=== PATIENT | female | born 1960 | race American Indian/Alaskan Native ===

== ENCOUNTER 2018-08-18 13:56 | Inpatient (IN) | payer MEDICARE, MEDICAID, SELFPAY ==
[2018-08-18] VITALS (13 sets, daily range): BP systolic 75–147; BP diastolic 33–88; PULSE 40–83; RESP 12–21; TEMP 36.9–39.6; O2SAT 84–100; BMI 27.3
--- NOTE | 2018-08-18 10:51 | DI.RAD.S_ITS ---
PROCEDURE: XR CHEST 1V INDICATIONS: fever cough TECHNIQUE: One view of the chest was acquired. COMPARISON: None. FINDINGS: Surgical changes and devices: None. Lungs and pleura: There are patchy airspace opacities in the left lung base suggestive of consolidation and pneumonia given clinical history. Indistinct right infrahilar opacities may also represent developing consolidation versus atelectasis. No pleural effusions or pneumothorax. Mediastinum: Mediastinal contours appear normal. Heart size is normal. Bones and chest wall: No suspicious bony lesions. Overlying soft tissues appear unremarkable. IMPRESSION: 1. Left basilar opacities suggestive of consolidation and pneumonia given clinical history. 2. Right basilar opacities may also represent developing consolidation versus atelectasis. Dictated by: Pramod Walters M.D. on 08/18/2018 at 11:11 Approved by: Pramod Walters M.D. on 08/18/2018 at 11:13
[2018-08-18] MEDS: KETOROLAC 60 MG/2 ML VIAL 30 MG IV (13:40)
[2018-08-18] MEDS: SODIUM CHLORIDE 0.9% 1,000 ML 1000 ML IV (14:00)
--- NOTE | 2018-08-18 14:19 | ED.AMS ---
HPI - Altered Mental Status General Chief Complaint: Toxicology Problem Stated Complaint: overdose Time Seen by Provider: 08/18/18 14:20 History of Present Illness HPI narrative: PATIENT ACTUALLY ARRIVED AT 10:50 A.M. WHICH IS THE TIME I SAW HER. UNFORTUNATELY DUE TO A Incoming Media ERROR ALL CHARTING HAS LOST IN UNABLE TO TRANSFER. Patient is a 58-year-old female presenting from [facility] the methadone clinic, she received her normal dose of methadone and about an hour or 2 later became unresponsive. She does admit to taking 1 other Percocet. She was given 4 mg of intranasal Narcan which she quickly became more responsive and vomited. She is actually febrile here in the ED. She is difficult to get any history from at this time. She is responsive. He has known history of COPD. She apparently has not been feeling well for last couple of days. We have received records from her PCP she was on prednisone and doxycycline July 12 2018. Related Data Home Medications Medication Instructions Recorded Confirmed albuterol sulfate [ProAir HFA] 2 puff INHALATION Q4-6H PRN 08/18/18 08/18/18 fluticasone 1 spray INTRANASAL DAILY 08/18/18 08/18/18 gabapentin 800 mg PO QID 08/18/18 08/18/18 hydroxyzine HCl 10 mg PO BEDTIME PRN 08/18/18 08/18/18 methadone 60 mg PO DAILY 08/18/18 08/18/18 Allergies Allergy/AdvReac Type Severity Reaction Status Date / Time acetaminophen Allergy Unknown Verified 08/18/18 15:15 codeine Allergy Unknown Verified 08/18/18 15:15 lactose Allergy Unknown Verified 08/18/18 15:15 propoxyphene Allergy Unknown Verified 08/18/18 15:15 [From [facility]] Review of Systems Review of Systems ROS Unobtainable: Unobtainable due to mental condition Constitutional Reports body ache(s), Reports fatigue and Reports fever(s) Cardiovascular Denies chest pain Respiratory Reports change in phlegm color, Reports chest congestion and Reports cough Gastrointestinal Gastrointestinal: Reports vomiting Musculoskeletal Denies back pain, Denies muscle weakness, Denies numbness and Denies tingling Integumentary/Breasts Denies pruritus, Denies erythema, Denies rash and Denies wounds Neurologic Reports confusion, Denies numbness and Denies tingling Psychiatric Reports confusion Endocrine Reports fatigue Exam Initial Vital Signs Initial Vital Signs: Vital Signs Temperature 103.2 F H 08/18/18 13:40 Pulse Rate 81 08/18/18 13:40 Respiratory Rate 16 08/18/18 13:40 Blood Pressure 122/88 08/18/18 13:40 Pulse Oximetry 100 08/18/18 13:40 Const General: cooperative and No diaphoretic Nutritional Appearance: average body habitus Orientation: alert and awake [facility] Head: normal to inspection, normocephalic and atraumatic Eyes General: appearance normal, both eyes and all related structures Neck Neck: normal visual inspection, full ROM and no meningeal signs Chest Chest: normal inspection of the chest Resp Effort & Inspection: normal respiratory effort and able to speak in complete sentences Auscultation: rales bilaterally at the base, no wheezes and no rubs Tactile Fremitus: tactile fremitus absent Cardio Rate: regular rate Rhythm: regular rhythm Heart Sounds: no click, no gallops, no murmurs and no rubs Pulses: normal peripheral pulses GI Inspection: non-distended Palpation: soft, no hepatosplenomegaly, No guarding, No pulsatile mass and No tender Auscultation: normal bowel sounds Skin General: no rashes or lesions noted, No jaundice and No petechiae Neuro General: alert, awake and no focal motor deficits Cognition: abnormal cognition (Confused) Course Orders Ordered: ED Orders 08/18/18 10:51 Urine Drug Screen, Rapid Stat 08/18/18 11:20 Acetaminophen Stat Blood Culture Stat Complete Blood Count AUTO DIFF Stat Comprehensive Metabolic Panel Stat Ethanol (ETOH) Stat Influenza A and B by PCR Rapid Stat Lactate (Lactic Acid) Stat Lipase Stat Procalcitonin Stat Salicylate Stat 08/18/18 14:03 Chest [XR chest 1V] Stat 08/18/18 15:20 Education, smoking cessation ONGOING Al Hydrox/Mg Hydrox/Simethicone (Maalox Plus) 30 ml PO Q6HR PRN PRN Reason: Dyspepsia Bisacodyl (Dulcolax) 10 mg NC DAILY PRN PRN Reason: Constipation Calcium Carbonate (Tums) 1,000 mg PO Q4HR PRN PRN Reason: Dyspepsia Heparin Sodium (Porcine) (Heparin) 5,000 unit SUBCUT Q8HR RADHA Last Admin: 08/18/18 16:40 Dose: 5,000 unit Sodium Chloride (Normal Saline 0.9%) 2,095.59 mls @ 698.53 mls/hr 30 ml/kg infuse over 3 hr (2095.59 ml) IV CONT RADHA Last Infusion: 08/18/18 15:24 Dose: 0 mls/hr Admin: 08/18/18 15:22 Dose: 698.53 mls/hr Sodium Chloride (Normal Saline 0.9%) 1,000 mls @ 100 mls/hr IV CONT RADHA Last Admin: 08/18/18 16:38 Dose: 100 mls/hr Magnesium Hydroxide (Milk Of Magnesia) 30 ml PO DAILY PRN PRN Reason: Constipation Sennosides (Senna) 17.2 mg PO BEDTIME PRN PRN Reason: Constipation Discontinued Medications Cefepime HCl 1 gm/ Sodium (Chloride) 100 mls @ 200 mls/hr IV NOW ONE Stop: 08/18/18 12:35 Last Infusion: 08/18/18 15:24 Dose: 0 mls/hr Admin: 08/18/18 15:22 Dose: 200 mls/hr Sodium Chloride (Normal Saline 0.9%) 1,000 mls @ 200 mls/hr IV CONT RADHA Last Infusion: 08/18/18 16:10 Dose: 800 mls/hr Admin: 08/18/18 15:25 Dose: 200 mls/hr Vancomycin HCl/Dextrose (Vancomycin) 1,000 mg in 200 mls @ 200 mls/hr IV NOW ONE Stop: 08/18/18 13:38 Last Infusion: 08/18/18 15:24 Dose: 0 mls/hr Admin: 08/18/18 15:21 Dose: 200 mls/hr Cefepime HCl 1 gm/ Sodium (Chloride) 100 mls @ 200 mls/hr IV NOW ONE Stop: 08/18/18 14:59 Last Infusion: 08/18/18 15:23 Dose: 0 mls/hr Admin: 08/18/18 15:21 Dose: 200 mls/hr Sodium Chloride (Normal Saline 0.9%) 1,000 mls @ 1,000 mls/hr IV BOLUS ONE Stop: 08/18/18 11:50 Last Infusion: 08/18/18 15:23 Dose: 0 mls/hr Admin: 08/18/18 14:00 Dose: 1,000 mls/hr Ketorolac Tromethamine (Toradol) 30 mg IV NOW ONE Stop: 08/18/18 10:52 Last Admin: 08/18/18 13:40 Dose: 30 mg Methylprednisolone (Solu-Medrol 125 Mg Vial) 125 mg IV NOW ONE Stop: 08/18/18 12:33 Last Admin: 08/18/18 15:20 Dose: 125 mg Ondansetron HCl (Zofran) 4 mg IV NOW ONE Stop: 08/18/18 10:52 Last Admin: 08/18/18 15:19 Dose: 4 mg Vital Signs - 8 hr 08/18/18 13:40 08/18/18 13:45 08/18/18 14:00 Temperature 103.2 F H 98.9 F Pulse Rate 82 63 83 Respiratory Rate 21 21 16 Blood Pressure 147/76 H Blood Pressure [Left Arm] 122/88 75/33 L Pulse Oximetry 96 94 08/18/18 14:30 08/18/18 15:00 08/18/18 15:25 Temperature 98.9 F Pulse Rate 61 52 L Respiratory Rate 12 13 Blood Pressure Blood Pressure [Left Arm] 84/39 L 82/39 L Pulse Oximetry 94 94 08/18/18 15:46 Temperature 98.4 F Pulse Rate 53 L Respiratory Rate 15 Blood Pressure 85/45 L Blood Pressure [Left Arm] Pulse Oximetry MDM - Altered Mental Status Lab Data Attestation: I reviewed the patient's lab results. Result diagrams: 08/18/18 11:20 08/18/18 11:20 Lab Results 08/18/18 08/18/18 08/18/18 Range/Units 11:20 11:20 11:20 WBC 15.7 H (4.5-11.0) X10^3/uL RBC 5.22 H (4.0-5.2) X10^6/uL Hgb 13.6 (12.0-16.0) g/dL Hct 42.4 (36-46) % MCV 81.2 (80-100) fL MCH 26.1 (26-34) PG MCHC 32.1 (30-36) % RDW 15.5 H (11.6-14.8) % Plt Count 324 (150-400) X10^3/uL Neut % (Auto) 93.9 H (50-75) % Lymph % (Auto) 3.3 L (25-40) % Isabela % (Auto) 3.1 (3-14) % Eos % (Auto) 0.0 L (2-4) % Baso % (Auto) 0.3 (0-2) % Neut # (Auto) 04789 H (5682-8436) /uL Lymph # (Auto) 500 L (7872-9313) /uL Isabela # (Auto) 500 (0-900) /uL Eos # (Auto) 0 (0-450) /uL Baso # (Auto) 0 (0-100) /uL Sodium (137-145) mmol/L Potassium (3.4-5.1) mmol/L Chloride (98-107) mmol/L Carbon Dioxide (22-32) mmol/L BUN (7-17) mg/dL Creatinine (0.52-1.04) mg/dL Estimated GFR (>60) mL/min BUN/Creatinine Ratio (6-22) Glucose (80-110) mg/dL Lactate (0.7-2.1) mmol/L Calcium (8.4-10.2) mg/dL Total Bilirubin (0.2-1.3) mg/dL AST (14-36) IU/L ALT (9-52) IU/L Alkaline Phosphatase (38-126) U/L Total Protein (6.3-8.2) g/dL Albumin (3.5-5.0) g/dL Globulin (1.7-4.1) g/dL Albumin/Globulin Ratio (1.0-2.8) Lipase Cancelled Procalcitonin (<0.5) ng/mL Salicylates Cancelled Acetaminophen (10-30) ug/mL Ethyl Alcohol mg/dL Influenza A & B (PCR) Negative (Negative) 08/18/18 08/18/18 08/18/18 Range/Units 11:20 11:20 11:20 WBC (4.5-11.0) X10^3/uL RBC (4.0-5.2) X10^6/uL Hgb (12.0-16.0) g/dL Hct (36-46) % MCV (80-100) fL MCH (26-34) PG MCHC (30-36) % RDW (11.6-14.8) % Plt Count (150-400) X10^3/uL Neut % (Auto) (50-75) % Lymph % (Auto) (25-40) % Isabela % (Auto) (3-14) % Eos % (Auto) (2-4) % Baso % (Auto) (0-2) % Neut # (Auto) (9603-1308) /uL Lymph # (Auto) (3373-5315) /uL Isabela # (Auto) (0-900) /uL Eos # (Auto) (0-450) /uL Baso # (Auto) (0-100) /uL Sodium 138 (137-145) mmol/L Potassium 3.8 (3.4-5.1) mmol/L Chloride 104 (98-107) mmol/L Carbon Dioxide 24 (22-32) mmol/L BUN 8 (7-17) mg/dL Creatinine 0.70 (0.52-1.04) mg/dL Estimated GFR > 60.0 (>60) mL/min BUN/Creatinine Ratio 11.4 (6-22) Glucose 93 (80-110) mg/dL Lactate 1.5 (0.7-2.1) mmol/L Calcium 8.5 (8.4-10.2) mg/dL Total Bilirubin 0.6 (0.2-1.3) mg/dL AST 35 (14-36) IU/L ALT 23 (9-52) IU/L Alkaline Phosphatase 112 (38-126) U/L Total Protein 7.4 (6.3-8.2) g/dL Albumin 4.2 (3.5-5.0) g/dL Globulin 3.2 (1.7-4.1) g/dL Albumin/Globulin Ratio 1.3 (1.0-2.8) Lipase 183 Procalcitonin 3.20 H (<0.5) ng/mL Salicylates 5.9 Acetaminophen < 10 L (10-30) ug/mL Ethyl Alcohol < 10 mg/dL Influenza A & B (PCR) (Negative) Point of Care Testing Glucose POC 84 Imaging Data Chest x-ray: Radiologist's impression: [address] [address] XRay Report Signed Patient: Laurie BruceR#: [id number] : 04/23/1978Acct:[id number] Age/Sex: 40 / FDate of Service: 08/18/18 Loc: ED Accession Number: [id number] Procedure: XR chest 1V Ordering Provider: Jaky Haas D.O. PROCEDURE: XR CHEST 1V INDICATIONS: fever cough TECHNIQUE: One view of the chest was acquired. COMPARISON: None. FINDINGS: Surgical changes and devices: None. Lungs and pleura: There are patchy airspace opacities in the left lung base suggestive of consolidation and pneumonia given clinical history. Indistinct right infrahilar opacities may also represent developing consolidation versus atelectasis. No pleural effusions or pneumothorax. Mediastinum: Mediastinal contours appear normal. Heart size is normal. Bones and chest wall: No suspicious bony lesions. Overlying soft tissues appear unremarkable. IMPRESSION: 1. Left basilar opacities suggestive of consolidation and pneumonia given clinical history. 2. Right basilar opacities may also represent developing consolidation versus atelectasis. Dictated by: Pramod Walters M.D. on 08/18/2018 at 11:11 MDM Narrative Medical decision making narrative: Patient's blood pressure has slowly decreased. To a systolic in the 70s. Fever controlled she has actually become more awake and alert. She is feeling overall much better. However she is having signs of sepsis and septic shock her blood pressure is responding to IV fluids. Based on her antibiotic use within the last month on COPD and methadone use she is high risk for Pseudomonas. She started on cefepime and vancomycin. Her chart and the results are trying to be transferred and the charts merged. However patient does have a 15,000 white count influenza is negative lactic acid 1.5 Procalcitonin 3.2 Patient's signs and symptoms consistent with pneumonia and septis. I spoke with Dr. Morel who has agreed with ICU admission Critical Care Time Critical Care Time: Yes Total Critical Care Time: 45 Attestation: The high probability of a clinically significant, sudden or life threatening deterioration of the [cardiovascular] system(s) required my full and direct attention, intervention and personal management. The aggregate critical care time was [45] minutes. This time is in addition to time spent performing reported procedures but includes the following: [x] Data Review and interpretation [x] Patient assessment and monitoring of vital signs [x] Documentation [x] Medication orders and management Discharge Plan Departure Patient Disposition: Admitted As Inpatient Clinical Impression: Pneumonia, Sepsis Discharge Date/Time: 08/18/18 16:15 Interventions: ED Discharge Assessment Last Done: 08/18/18 16:35 Admit Date/Time: 08/18/18 14:41 Admit Provider: Marion Morel
--- NOTE | 2018-08-18 14:22 | ED_ITS ---
HPI - Altered Mental Status General Chief Complaint: Toxicology Problem Stated Complaint: overdose Time Seen by Provider: 08/18/18 14:20 History of Present Illness HPI narrative: PATIENT ACTUALLY ARRIVED AT 10:50 A.M. WHICH IS THE TIME I SAW HER. UNFORTUNATELY DUE TO A [employer] ERROR ALL CHARTING HAS LOST IN UNABLE TO TRANSFER. Patient is a 58-year-old female presenting from [facility] the methadone clinic, she received her normal dose of methadone and about an hour or 2 later became unresponsive. She does admit to taking 1 other Percocet. She was given 4 mg of intranasal Narcan which she quickly became more responsive and vomited. She is actually febrile here in the ED. She is difficult to get any history from at this time. She is responsive. He has known history of COPD. She apparently has not been feeling well for last couple of days. We have received records from her PCP she was on prednisone and doxycycline July 12 2018. Related Data Home Medications Medication Instructions Recorded Confirmed albuterol sulfate [ProAir HFA] 2 puff INHALATION Q4-6H PRN 08/18/18 08/18/18 fluticasone 1 spray INTRANASAL DAILY 08/18/18 08/18/18 gabapentin 800 mg PO QID 08/18/18 08/18/18 hydroxyzine HCl 10 mg PO BEDTIME PRN 08/18/18 08/18/18 methadone 60 mg PO DAILY 08/18/18 08/18/18 Allergies Allergy/AdvReac Type Severity Reaction Status Date / Time acetaminophen Allergy Unknown Verified 08/18/18 15:15 codeine Allergy Unknown Verified 08/18/18 15:15 lactose Allergy Unknown Verified 08/18/18 15:15 propoxyphene Allergy Unknown Verified 08/18/18 15:15 [From [place]] Review of Systems Review of Systems ROS Unobtainable: Unobtainable due to mental condition Constitutional Reports body ache(s), Reports fatigue and Reports fever(s) Cardiovascular Denies chest pain Respiratory Reports change in phlegm color, Reports chest congestion and Reports cough Gastrointestinal Gastrointestinal: Reports vomiting Musculoskeletal Denies back pain, Denies muscle weakness, Denies numbness and Denies tingling Integumentary/Breasts Denies pruritus, Denies erythema, Denies rash and Denies wounds Neurologic Reports confusion, Denies numbness and Denies tingling Psychiatric Reports confusion Endocrine Reports fatigue Exam Initial Vital Signs Initial Vital Signs: Vital Signs Temperature 103.2 F H 08/18/18 13:40 Pulse Rate 81 08/18/18 13:40 Respiratory Rate 16 08/18/18 13:40 Blood Pressure 122/88 08/18/18 13:40 Pulse Oximetry 100 08/18/18 13:40 Const General: cooperative and No diaphoretic Nutritional Appearance: average body habitus Orientation: alert and awake [facility] Head: normal to inspection, normocephalic and atraumatic Eyes General: appearance normal, both eyes and all related structures Neck Neck: normal visual inspection, full ROM and no meningeal signs Chest Chest: normal inspection of the chest Resp Effort & Inspection: normal respiratory effort and able to speak in complete sentences Auscultation: rales bilaterally at the base, no wheezes and no rubs Tactile Fremitus: tactile fremitus absent Cardio Rate: regular rate Rhythm: regular rhythm Heart Sounds: no click, no gallops, no murmurs and no rubs Pulses: normal peripheral pulses GI Inspection: non-distended Palpation: soft, no hepatosplenomegaly, No guarding, No pulsatile mass and No tender Auscultation: normal bowel sounds Skin General: no rashes or lesions noted, No jaundice and No petechiae Neuro General: alert, awake and no focal motor deficits Cognition: abnormal cognition (Confused) Course Orders Ordered: ED Orders 08/18/18 10:51 Urine Drug Screen, Rapid Stat 08/18/18 11:20 Acetaminophen Stat Blood Culture Stat Complete Blood Count AUTO DIFF Stat Comprehensive Metabolic Panel Stat Ethanol (ETOH) Stat Influenza A and B by PCR Rapid Stat Lactate (Lactic Acid) Stat Lipase Stat Procalcitonin Stat Salicylate Stat 08/18/18 14:03 Chest [XR chest 1V] Stat 08/18/18 15:20 Education, smoking cessation ONGOING Al Hydrox/Mg Hydrox/Simethicone (Maalox Plus) 30 ml PO Q6HR PRN PRN Reason: Dyspepsia Bisacodyl (Dulcolax) 10 mg [place] DAILY PRN PRN Reason: Constipation Calcium Carbonate (Tums) 1,000 mg PO Q4HR PRN PRN Reason: Dyspepsia Heparin Sodium (Porcine) (Heparin) 5,000 unit SUBCUT Q8HR RADHA Last Admin: 08/18/18 16:40 Dose: 5,000 unit Sodium Chloride (Normal Saline 0.9%) 2,095.59 mls @ 698.53 mls/hr 30 ml/kg infuse over 3 hr (2095.59 ml) IV CONT RADHA Last Infusion: 08/18/18 15:24 Dose: 0 mls/hr Admin: 08/18/18 15:22 Dose: 698.53 mls/hr Sodium Chloride (Normal Saline 0.9%) 1,000 mls @ 100 mls/hr IV CONT RADHA Last Admin: 08/18/18 16:38 Dose: 100 mls/hr Magnesium Hydroxide (Milk Of Magnesia) 30 ml PO DAILY PRN PRN Reason: Constipation Sennosides (Senna) 17.2 mg PO BEDTIME PRN PRN Reason: Constipation Discontinued Medications Cefepime HCl 1 gm/ Sodium (Chloride) 100 mls @ 200 mls/hr IV NOW ONE Stop: 08/18/18 12:35 Last Infusion: 08/18/18 15:24 Dose: 0 mls/hr Admin: 08/18/18 15:22 Dose: 200 mls/hr Sodium Chloride (Normal Saline 0.9%) 1,000 mls @ 200 mls/hr IV CONT RADHA Last Infusion: 08/18/18 16:10 Dose: 800 mls/hr Admin: 08/18/18 15:25 Dose: 200 mls/hr Vancomycin HCl/Dextrose (Vancomycin) 1,000 mg in 200 mls @ 200 mls/hr IV NOW ONE Stop: 08/18/18 13:38 Last Infusion: 08/18/18 15:24 Dose: 0 mls/hr Admin: 08/18/18 15:21 Dose: 200 mls/hr Cefepime HCl 1 gm/ Sodium (Chloride) 100 mls @ 200 mls/hr IV NOW ONE Stop: 08/18/18 14:59 Last Infusion: 08/18/18 15:23 Dose: 0 mls/hr Admin: 08/18/18 15:21 Dose: 200 mls/hr Sodium Chloride (Normal Saline 0.9%) 1,000 mls @ 1,000 mls/hr IV BOLUS ONE Stop: 08/18/18 11:50 Last Infusion: 08/18/18 15:23 Dose: 0 mls/hr Admin: 08/18/18 14:00 Dose: 1,000 mls/hr Ketorolac Tromethamine (Toradol) 30 mg IV NOW ONE Stop: 08/18/18 10:52 Last Admin: 08/18/18 13:40 Dose: 30 mg Methylprednisolone (Solu-Medrol 125 Mg Vial) 125 mg IV NOW ONE Stop: 08/18/18 12:33 Last Admin: 08/18/18 15:20 Dose: 125 mg Ondansetron HCl (Zofran) 4 mg IV NOW ONE Stop: 08/18/18 10:52 Last Admin: 08/18/18 15:19 Dose: 4 mg Vital Signs - 8 hr 08/18/18 13:40 08/18/18 13:45 08/18/18 14:00 Temperature 103.2 F H 98.9 F Pulse Rate 82 63 83 Respiratory Rate 21 21 16 Blood Pressure 147/76 H Blood Pressure [Left Arm] 122/88 75/33 L Pulse Oximetry 96 94 08/18/18 14:30 08/18/18 15:00 08/18/18 15:25 Temperature 98.9 F Pulse Rate 61 52 L Respiratory Rate 12 13 Blood Pressure Blood Pressure [Left Arm] 84/39 L 82/39 L Pulse Oximetry 94 94 08/18/18 15:46 Temperature 98.4 F Pulse Rate 53 L Respiratory Rate 15 Blood Pressure 85/45 L Blood Pressure [Left Arm] Pulse Oximetry MDM - Altered Mental Status Lab Data Attestation: I reviewed the patient's lab results. Result diagrams: 08/18/18 11:20 08/18/18 11:20 Lab Results 08/18/18 08/18/18 08/18/18 Range/Units 11:20 11:20 11:20 WBC 15.7 H (4.5-11.0) X10^3/uL RBC 5.22 H (4.0-5.2) X10^6/uL Hgb 13.6 (12.0-16.0) g/dL Hct 42.4 (36-46) % MCV 81.2 (80-100) fL MCH 26.1 (26-34) PG MCHC 32.1 (30-36) % RDW 15.5 H (11.6-14.8) % Plt Count 324 (150-400) X10^3/uL Neut % (Auto) 93.9 H (50-75) % Lymph % (Auto) 3.3 L (25-40) % [place] % (Auto) 3.1 (3-14) % Eos % (Auto) 0.0 L (2-4) % Baso % (Auto) 0.3 (0-2) % Neut # (Auto) 41146 H (3722-6376) /uL Lymph # (Auto) 500 L (1418-6588) /uL [place] # (Auto) 500 (0-900) /uL Eos # (Auto) 0 (0-450) /uL Baso # (Auto) 0 (0-100) /uL Sodium (137-145) mmol/L Potassium (3.4-5.1) mmol/L Chloride (98-107) mmol/L Carbon Dioxide (22-32) mmol/L BUN (7-17) mg/dL Creatinine (0.52-1.04) mg/dL Estimated GFR (>60) mL/min BUN/Creatinine Ratio (6-22) Glucose (80-110) mg/dL Lactate (0.7-2.1) mmol/L Calcium (8.4-10.2) mg/dL Total Bilirubin (0.2-1.3) mg/dL AST (14-36) IU/L ALT (9-52) IU/L Alkaline Phosphatase (38-126) U/L Total Protein (6.3-8.2) g/dL Albumin (3.5-5.0) g/dL Globulin (1.7-4.1) g/dL Albumin/Globulin Ratio (1.0-2.8) Lipase Cancelled Procalcitonin (<0.5) ng/mL Salicylates Cancelled Acetaminophen (10-30) ug/mL Ethyl Alcohol mg/dL Influenza A & B (PCR) Negative (Negative) 08/18/18 08/18/18 08/18/18 Range/Units 11:20 11:20 11:20 WBC (4.5-11.0) X10^3/uL RBC (4.0-5.2) X10^6/uL Hgb (12.0-16.0) g/dL Hct (36-46) % MCV (80-100) fL MCH (26-34) PG MCHC (30-36) % RDW (11.6-14.8) % Plt Count (150-400) X10^3/uL Neut % (Auto) (50-75) % Lymph % (Auto) (25-40) % [place] % (Auto) (3-14) % Eos % (Auto) (2-4) % Baso % (Auto) (0-2) % Neut # (Auto) (3056-3848) /uL Lymph # (Auto) (3480-7142) /uL [place] # (Auto) (0-900) /uL Eos # (Auto) (0-450) /uL Baso # (Auto) (0-100) /uL Sodium 138 (137-145) mmol/L Potassium 3.8 (3.4-5.1) mmol/L Chloride 104 (98-107) mmol/L Carbon Dioxide 24 (22-32) mmol/L BUN 8 (7-17) mg/dL Creatinine 0.70 (0.52-1.04) mg/dL Estimated GFR > 60.0 (>60) mL/min BUN/Creatinine Ratio 11.4 (6-22) Glucose 93 (80-110) mg/dL Lactate 1.5 (0.7-2.1) mmol/L Calcium 8.5 (8.4-10.2) mg/dL Total Bilirubin 0.6 (0.2-1.3) mg/dL AST 35 (14-36) IU/L ALT 23 (9-52) IU/L Alkaline Phosphatase 112 (38-126) U/L Total Protein 7.4 (6.3-8.2) g/dL Albumin 4.2 (3.5-5.0) g/dL Globulin 3.2 (1.7-4.1) g/dL Albumin/Globulin Ratio 1.3 (1.0-2.8) Lipase 183 Procalcitonin 3.20 H (<0.5) ng/mL Salicylates 5.9 Acetaminophen < 10 L (10-30) ug/mL Ethyl Alcohol < 10 mg/dL Influenza A & B (PCR) (Negative) Point of Care Testing Glucose POC 84 Imaging Data Chest x-ray: Radiologist's impression: [address] [address] XRay Report Signed Patient: Laurie BruceR#: [id number] : 04/23/1978Acct:[id number] Age/Sex: 40 / FDate of Service: 08/18/18 Loc: ED Accession Number: [id number] Procedure: XR chest 1V Ordering Provider: Jaky Haas D.O. PROCEDURE: XR CHEST 1V INDICATIONS: fever cough TECHNIQUE: One view of the chest was acquired. COMPARISON: None. FINDINGS: Surgical changes and devices: None. Lungs and pleura: There are patchy airspace opacities in the left lung base suggestive of consolidation and pneumonia given clinical history. Indistinct right infrahilar opacities may also represent developing consolidation versus atelectasis. No pleural effusions or pneumothorax. Mediastinum: Mediastinal contours appear normal. Heart size is normal. Bones and chest wall: No suspicious bony lesions. Overlying soft tissues appear unremarkable. IMPRESSION: 1. Left basilar opacities suggestive of consolidation and pneumonia given clinical history. 2. Right basilar opacities may also represent developing consolidation versus atelectasis. Dictated by: Pramod Walters M.D. on 08/18/2018 at 11:11 MDM Narrative Medical decision making narrative: Patient's blood pressure has slowly decreased. To a systolic in the 70s. Fever controlled she has actually become more awake and alert. She is feeling overall much better. However she is having signs of sepsis and septic shock her blood pressure is responding to IV fluids. Based on her antibiotic use within the last month on COPD and methadone use she is high risk for Pseudomonas. She started on cefepime and vancomycin. Her chart and the results are trying to be transferred and the charts merged. However patient does have a 15,000 white count influenza is negative lactic acid 1.5 Procalcitonin 3.2 Patient's signs and symptoms consistent with pneumonia and septis. I spoke with Dr. Morel who has agreed with ICU admission Critical Care Time Critical Care Time: Yes Total Critical Care Time: 45 Attestation: The high probability of a clinically significant, sudden or life threatening deterioration of the [cardiovascular] system(s) required my full and direct attention, intervention and personal management. The aggregate critical care time was [45] minutes. This time is in addition to time spent performing reported procedures but includes the following: [x] Data Review and interpretation [x] Patient assessment and monitoring of vital signs [x] Documentation [x] Medication orders and management Discharge Plan Departure Patient Disposition: Admitted As Inpatient Clinical Impression: Pneumonia, Sepsis Discharge Date/Time: 08/18/18 16:15 Interventions: ED Discharge Assessment Last Done: 08/18/18 16:35 Admit Date/Time: 08/18/18 14:41 Admit Provider: Marion Morel
[2018-08-18 14:42] LABS: Influenza A and B by PCR Rapid Negative (Negative)
--- NOTE | 2018-08-18 14:42 | PC.NURSE ---
Toxicology Assessment Documented by Neema RABAGO at 1132, transcribed on her behalf
[2018-08-18 14:43] LABS: Lactate (Lactic Acid) 1.5 mmol/L (0.7-2.1); Sodium 138 mmol/L (137-145)
[2018-08-18 14:44] LABS: Alanine Aminotransferase 23 IU/L (9-52); Albumin 4.2 g/dL (3.5-5.0); Albumin Globulin Ratio 1.3 (1.0-2.8); Alkaline Phosphatase 112 U/L (38-126); Aspartate Aminotransferase 35 IU/L (14-36); BUN Creatinine Ratio 11.4 (6-22); Bilirubin Total 0.6 mg/dL (0.2-1.3); Blood Urea Nitrogen 8 mg/dL (7-17); Calcium 8.5 mg/dL (8.4-10.2); Carbon Dioxide 24 mmol/L (22-32); Chloride 104 mmol/L (98-107); Estimated Glomerular Filt Rate > 60.0 mL/min (>60); Globulin 3.2 g/dL (1.7-4.1); Glucose 93 mg/dL (80-110); Potassium 3.8 mmol/L (3.4-5.1); Total Protein 7.4 g/dL (6.3-8.2)
[2018-08-18 14:45] LABS: Acetaminophen < 10 ug/mL (10-30); Ethanol (ETOH) < 10 mg/dL; Lipase 183 U/L (23-300); Red Blood Cell Count 5.22 X10^6/uL (4.0-5.2); Salicylate 5.9 mg/dL (<20); White Blood Cell Count 15.7 X10^3/uL (4.5-11.0)
[2018-08-18 14:46] LABS: Add Manual Diff / Slide Review NO; Basophils Percent Auto 0.3 % (0-2); Hematocrit 42.4 % (36-46); Hemoglobin 13.6 g/dL (12.0-16.0); Lymphocytes Percent Auto 3.3 % (25-40); Mean Corpuscular HGB Conc 32.1 % (30-36); Mean Corpuscular Hemoglobin 26.1 PG (26-34); Mean Corpuscular Volume 81.2 fL (80-100); Monocytes Percent Auto 3.1 % (3-14); Neutrophils Absolute Auto 14700 /uL (1500-7000); Neutrophils Percent Auto 93.9 % (50-75); Platelet Count 324 X10^3/uL (150-400); Red Cell Distribution Width 15.5 % (11.6-14.8)
[2018-08-18 14:47] LABS: Basophils Absolute Auto 0 /uL (0-100); Eosinophils Absolute Auto 0 /uL (0-450); Lymphocytes Absolute Auto 500 /uL (1100-4500); Monocytes Absolute Auto 500 /uL (0-900)
[2018-08-18 14:48] LABS: HEMOLYSIS < 15 (0-50)
--- NOTE | 2018-08-18 14:48 | PC.NURSE ---
VS taken at 1224 by Neema RABAGO
--- NOTE | 2018-08-18 14:49 | PC.NURSE ---
VS taken at 1230 by JONN
--- NOTE | 2018-08-18 14:50 | PC.NURSE ---
VS taken at 1300 by JONN
[2018-08-18] MEDS: ONDANSETRON 4 MG/2 ML INJ IV (15:19)
[2018-08-18] MEDS: methylPREDNISolone 125 MG/2 ML VIAL IV (15:20)
[2018-08-18] MEDS: CEFEPIME 1 GM in SODIUM CHLORIDE 0.9% 100 ML 200 ML IV ×2 (15:21→15:22)
[2018-08-18] MEDS: VANCOMYCIN 1,000 MG/200 ML FROZ.PIGGY 200 MG IV (15:21)
[2018-08-18] MEDS: SODIUM CHLORIDE 0.9% 698.53 ML IV (15:22)
[2018-08-18] MEDS: SODIUM CHLORIDE 0.9% 1,000 ML 200 ML IV (15:25)
--- NOTE | 2018-08-18 16:11 | PC.NURSE ---
pt chart had issue, [employer] error. dr. dawkins, notified lab and DI. pt arrived with temp of 103.2 given toradol 30mg iv, ns bolus iv , and [id number] iv around 1130. along with methylprednisolone 125mg IV. pt temp down to 98.9. vitals 122/88, p 82 rr 21, p ox 96% co2 36 (pt placed on 2l o2 sats dropped to 88% when pt fell asleep.) pt 1230 bp 101/47 dr. rosa dawkins provided orders. continuing ns bolus, 1300 pt bp 79/38 p 71, 1315 74/30. pt able to void x1 around 1300. bp continuing bolus ns iv 75/33 pt arousable by sound. 1430 84/39 m (50) pt requesting sandwich, provided. 1500 pt resting with eyes closed bp 84/39 map (49) pt provided iv antibiotics as ordered. pt tolerated well. pt resting quietly able to wake with sound, calling her name. she did let family know she'd be staying in the hospital. upon transfer to ICU pt was able to move self across the beds. provide hard copy of vital signs for chart.
--- NOTE | 2018-08-18 16:34 | PC.NURSE ---
1445 pt lethargic but responds to her name.
[2018-08-18] MEDS: SODIUM CHLORIDE 0.9% 1,000 ML 100 ML IV (16:38)
[2018-08-18] MEDS: HEPARIN 5,000 UNIT/ML VIAL 5000 UNIT SUBCUT ×2 (16:40→22:22)
[2018-08-18 18:58] LABS: Urine Tetrahydrocannabinol Negative (Negative)
[2018-08-18 18:59] LABS: Urine Cocaine Negative (Negative)
[2018-08-18 19:00] LABS: Urine Amphetamines Negative (Negative); Urine Barbiturates Negative (Negative); Urine Benzodiazepines Negative (Negative); Urine MDMA Negative (Negative); Urine Methadone Positive (Negative); Urine Methamphetamines Negative (Negative); Urine Morphine/Opi cutoff 2000 Negative (Negative); Urine Oxycodone Positive (Negative); Urine Phencyclidine Negative (Negative); Urine Tricyclic Antidepressant Negative (Negative)
--- NOTE | 2018-08-18 19:22 | PC.NURSE ---
1530- Patient arrived from Emergency via stretcher. Patient is drowsy but arouses when spoken too. Patient assisted to the bed and hooked up to the monitor and vitals obtained. Bed alarm is engaged. Patient verbalizes understanding of how to use the call light and that she needs to call for assist. Patient denies pain. Patient is noted to be bradycardic and her blood pressure is low MD is aware.
--- NOTE | 2018-08-18 21:51 | PM.HP.1 ---
History of Present Illness Date Patient Seen: 08/18/18 Time Patient Seen: 20:51 Chief complaint: overdose Narrative: This is a 58-year-old female patient with a history of COPD, fibromyalgia, Oneal malformation, status post colon resection and history of IV drug use who was brought to the ER with an accidental overdose. Early in the day the patient was seen at methadone Clinic where she received 60 mg of methadone. Subsequently the patient had a syncopal episode and became unresponsive while at the clinic and received 2 doses of intranasal 2 min apart with the patient regaining responsiveness. On further investigation it was found that the patient who had been feeling poorly for 3 weeks with a productive cough fever nausea without and 2 days of diarrhea and took 1/2 of a 10 mg Percocet in attempt to feel better. She has had recent sick contact with her grandson having the flu. She has additional history current smoker 1 pack per day and heroin use with last exposure reported 1 month ago. She has associated complaints vomiting, rhinorrhea and headache. Level in ER patient had a GCS documented at 14 with eyes opening to sound. She is alert and oriented to name and place. Initial rhythm was sinus rhythm which progressed to sinus bradycardia. On examination she had a cough with coarse breath sounds and exertional dyspnea. A chest x-ray reveals bilateral pneumonia. On CBC she is noted to have an elevated white count left shift if 15.7 with an H/H of 13.6 and 42.4 respectively. Her chemistries are noted to be within normal range with a BUN of 8 creatinine is 0.7. She has lactate of 1.5 and a procalcitonin of 3.20. Initial vital signs in the ER 147/76, respiratory rate is 16, heart rate of O2 saturation of 100% air with an end-tidal CO2 of 36. Of note in the ER patient was documented with temperature of 103.2? and 5 min later a 98.9 and has been afebrile since. On encounter the patient complains of headache, neck pain and nausea is appropriately responsive and cooperative. She denies sore throat or chest pain and has no dyspnea at rest. Patient History Medical History Chiari malformation (Acute) Current smoker (Acute) Fibromyalgia (Acute) History of intravenous drug abuse (Acute) COPD (chronic obstructive pulmonary disease) (Chronic) Chronic back pain (Chronic) Depression (Chronic) Surgical History History of cholecystectomy (Acute) History of colon resection (Acute) History of total hysterectomy (Acute) Status post open reduction with internal fixation (ORIF) of fracture of ankle (Acute) Family History Mother Thrombophlebitis Heart disease Father Alcoholism Brother COPD (chronic obstructive pulmonary disease) Brother Heart disease Social History household members: children Smoking Status: Current every day smoker alcohol intake: never Family & Social History Family History Mother Thrombophlebitis Heart disease Father Alcoholism Brother COPD (chronic obstructive pulmonary disease) Brother Heart disease Social History: household members children Prior Living Arrangements House Safety & Behavioral: Feels Safe in Current Yes Environment Been Physically Hurt or No Threatened By a Person Suicidal Ideation Description None Suicide Plan Description No Plan Tobacco & Substance use: Tobacco type cigarettes Smoking Status Current every day smoker alcohol intake never Substance Use Type other Comment: The patient lives in single-family home and is . She is 1 month ago following 44 years of marriage. She has 3 children. Smoking: The patient has smoked 1 pack per day since age 7 and his current smoker Alcohol consumption: Patient reports alcoholism for 15 years and is now sober. Drug use: Positive for heroin last use 1 month ago, oral narcotics, 3 children use heroin. Advanced directives: The patient requests to be DNR DNI. She does not designated surrogate decision maker at this time. Meds Home Medications Medication Instructions Recorded Confirmed Type albuterol sulfate [ProAir HFA] 2 puff INHALATION Q4-6H PRN 08/18/18 08/18/18 History fluticasone 1 spray INTRANASAL DAILY 08/18/18 08/18/18 History gabapentin 800 mg PO QID 08/18/18 08/18/18 History hydroxyzine HCl 10 mg PO BEDTIME PRN 08/18/18 08/18/18 History methadone 60 mg PO DAILY 08/18/18 08/18/18 History Allergies Allergy/AdvReac Type Severity Reaction Status Date / Time acetaminophen Allergy Unknown Verified 08/18/18 15:15 codeine Allergy Unknown Verified 08/18/18 15:15 lactose Allergy Unknown Verified 08/18/18 15:15 propoxyphene Allergy Unknown Verified 08/18/18 15:15 [From Mona-N] Review of Systems Review of Systems Constitutional: Positive for recent illness for 3 weeks, malaise, fevers, body aches Denies weight change with fair appetite Eyes: Denies visual changes, denies floaters, diplopia ENT: Positive for Chiari malformation, chronic headache, neck pain, nasal congestion, Denies earing changes, ear pain, dysphagia, sore throat Respiratory: Positive for productive cough, exertional dyspnea, Denies wheezing Cardiovascular: Denies chest pain, palpitations, orthostatic dizziness, edema Gastrointestinal: Positive for diarrhea x2 days, nausea, bloating, Denies abdominal pain, vomiting, denies blood in stool. Genitourinary: Positive for history of colon resection, denies vaginal discharge, urinary incontinence or complains of frequency, burning or urgency, hematuria on voiding Musculoskeletal: Positive for history ankle fracture, denies falls, weakness, limited movement, cramps, edema, myalgia or joint swelling. Integumentary: denies skin lesions, masses, rashes, hives, itching or hair loss Neurological: Positive for fibromyalgia, denies numbness or tingling, speech difficulties or seizures Psychiatric: denies disturbances in thought, attentions or mood, denies suicidal ideation Endocrine: denies goiter, lethargy, abnormal sweating, and heat/cold intolerance. Heme/lymph: Denies lymphadenopathy, abnormal bleeding or bruising Exam Vital Signs (past 8 hours): - 08/18/18 14:00 08/18/18 14:30 08/18/18 15:00 Temperature Pulse Rate 83 61 52 L Respiratory Rate 16 12 13 Blood Pressure Blood Pressure [Left Arm] 84/39 L 82/39 L Pulse Oximetry 94 94 08/18/18 15:25 08/18/18 15:46 08/18/18 18:00 Temperature 98.9 F 98.4 F Pulse Rate 53 L 45 L Respiratory Rate 15 Blood Pressure 85/45 L 87/44 L Blood Pressure [Left Arm] Pulse Oximetry 08/18/18 19:00 08/18/18 20:00 Temperature Pulse Rate 45 L 40 L Respiratory Rate Blood Pressure 93/50 L 95/45 L Blood Pressure [Left Arm] Pulse Oximetry Oxygen Delivery Method Nasal Cannula Oxygen Flow Rate 2 Narrative Exam Narrative: General: Well developed, overweight, BMI 27.3 in no acute distress. Skin: Warm, dry, pink, no rashes, no visible lesions HEENT: Normocephalic, PERRLA, EOMs intact without nystagmus, conjunctiva moist, sclera is anicteric, no ear pain, hearing grossly normal, no sinus tenderness to percussion, oropharynx is moist and pink without lesions or exudate, uvula midline, posterior pharynx without inflammation, no cervical lymphadenopathy Neck: Supple, tender palpation posteriorly bilateral paraspinal muscular tension, no step-offs or masses on palpation, thyroid non tender without thyromegaly or nodules, trachea midline, no carotid bruits or JVD, no supraclavicular lymphadenopathy Cardiac: Bradycardic rate with regular rhythm, S1, physiological split S2, 1/6 systolic murmur, no gallops or rubs, 2+ radial pulse, 1+ dorsalis pedis pulse, capillary refill is brisk, no edema Chest: Symmetrical movement, breathing non labored, no cough present, BS equal bilateral without coarseness, crackles or wheezes, slightly diminished bilateral bases Abdomen: Soft, no epigastric or abdominal tenderness or guarding, no masses or organomegaly, no flank or suprapubic pain, BS normal. Back: Normal curvature, no tenderness to palpation, no CVA tenderness on percussion Extremities: Full ROM, no synovial effusions or deformities, strength 5/5 and symmetrical Neuro: AAOx4, cranial nerves II-XII grossly intact, distal sensation intact to light touch, no paresthesias, no tremors Psych: Quiet, cooperative, responds to questions with short answers, stable mood and congruent affect Objective Labs Result Diagrams: 08/18/18 11:20 08/18/18 11:20 Labs: Laboratory Results - last 24 hr 08/18/18 08/18/18 08/18/18 11:20 11:20 11:20 WBC 15.7 H RBC 5.22 H Hgb 13.6 Hct 42.4 MCV 81.2 MCH 26.1 MCHC 32.1 RDW 15.5 H Plt Count 324 Neut % (Auto) 93.9 H Lymph % (Auto) 3.3 L Humphreys % (Auto) 3.1 Eos % (Auto) 0.0 L Baso % (Auto) 0.3 Neut # (Auto) 76816 H Lymph # (Auto) 500 L Humphreys # (Auto) 500 Eos # (Auto) 0 Baso # (Auto) 0 Sodium Potassium Chloride Carbon Dioxide BUN Creatinine Estimated GFR BUN/Creatinine Ratio Glucose Lactate Calcium Total Bilirubin AST ALT Alkaline Phosphatase Total Protein Albumin Globulin Albumin/Globulin Ratio Lipase Cancelled Procalcitonin Nasal Screen MRSA (PCR) Salicylates Cancelled Urine Opiates Screen Ur Oxycodone Screen Urine Methadone Screen Acetaminophen Ur Barbiturates Screen U Tricyclic Antidepress Ur Phencyclidine Scrn Ur Amphetamines Screen U Methamphetamines Scrn Ur MDMA Scrn (Ecstasy) U Benzodiazepines Scrn Urine Cocaine Screen U Marijuana (THC) Screen Ethyl Alcohol Influenza A & B (PCR) Negative 08/18/18 08/18/18 08/18/18 11:20 11:20 11:20 WBC RBC Hgb Hct MCV MCH MCHC RDW Plt Count Neut % (Auto) Lymph % (Auto) Humphreys % (Auto) Eos % (Auto) Baso % (Auto) Neut # (Auto) Lymph # (Auto) Humphreys # (Auto) Eos # (Auto) Baso # (Auto) Sodium 138 Potassium 3.8 Chloride 104 Carbon Dioxide 24 BUN 8 Creatinine 0.70 Estimated GFR > 60.0 BUN/Creatinine Ratio 11.4 Glucose 93 Lactate 1.5 Calcium 8.5 Total Bilirubin 0.6 AST 35 ALT 23 Alkaline Phosphatase 112 Total Protein 7.4 Albumin 4.2 Globulin 3.2 Albumin/Globulin Ratio 1.3 Lipase 183 Procalcitonin 3.20 H Nasal Screen MRSA (PCR) Salicylates 5.9 Urine Opiates Screen Ur Oxycodone Screen Urine Methadone Screen Acetaminophen < 10 L Ur Barbiturates Screen U Tricyclic Antidepress Ur Phencyclidine Scrn Ur Amphetamines Screen U Methamphetamines Scrn Ur MDMA Scrn (Ecstasy) U Benzodiazepines Scrn Urine Cocaine Screen U Marijuana (THC) Screen Ethyl Alcohol < 10 Influenza A & B (PCR) 08/18/18 08/18/18 16:00 18:00 WBC RBC Hgb Hct MCV MCH MCHC RDW Plt Count Neut % (Auto) Lymph % (Auto) Humphreys % (Auto) Eos % (Auto) Baso % (Auto) Neut # (Auto) Lymph # (Auto) Humphreys # (Auto) Eos # (Auto) Baso # (Auto) Sodium Potassium Chloride Carbon Dioxide BUN Creatinine Estimated GFR BUN/Creatinine Ratio Glucose Lactate Calcium Total Bilirubin AST ALT Alkaline Phosphatase Total Protein Albumin Globulin Albumin/Globulin Ratio Lipase Procalcitonin Nasal Screen MRSA (PCR) Negative for mrsa Salicylates Urine Opiates Screen Negative Ur Oxycodone Screen Positive H Urine Methadone Screen Positive H Acetaminophen Ur Barbiturates Screen Negative U Tricyclic Antidepress Negative Ur Phencyclidine Scrn Negative Ur Amphetamines Screen Negative U Methamphetamines Scrn Negative Ur MDMA Scrn (Ecstasy) Negative U Benzodiazepines Scrn Negative Urine Cocaine Screen Negative U Marijuana (THC) Screen Negative Ethyl Alcohol Influenza A & B (PCR) Assessment & Plan Plan: Assessment/Plan Narrative: This is a 58-year-old female who experienced an accidental overdose. She has concomitant community-acquired pneumonia that does not meet qSOFA sepsis criteria. The patient will be admitted to ICU for close monitoring related to low blood pressure and bradycardia. 1. Accidental overdose, present on admission, acute -patient was found unresponsive at methadone clinic and revived with Narcan -patient endorses taking Percocet in addition to methadone -history of IV drug abuse, last use was here I month ago, toxicology screening is positive for oxycodone and methadone -patient with hypertension believed to be related to opiates opposed to sepsis as the patient is afebrile -patient is bradycardic with heart rate dipping into the 30s with borderline hemodynamic stability. -patient will be admitted to the ICU for close monitoring, anticipated blood pressure and heart rate normalizing as medication wears off -provider all be notified of hemodynamic instability -holding all sedative medications 2. Community-acquired pneumonia, present on admission, active -symptomatic productive cough for 3 weeks, associated shortness of breath on exertion -chest x-ray demonstrates bilateral pneumonia -positive procalcitonin at 3.2.. -patient is afebrile and notably allergic to Tylenol -patient started on cefepime receiving 2 g in the ER continue 1 g q.12 hours -patient received vancomycin in the emergency department, MRSA screening is negative, will discontinue vancomycin. -will follow up patient with CBC, BMP and pro calcitonin. Blood cultures drawn and pending -will obtain respiratory PCR 3. COPD, present on admission, active -patient is current smoker 1 pack per day since age 7 -discussed smoking cessation greater than 3 less than 10 min -no wheezing on exam breath sounds diminished bibasilar -DuoNeb q.6 hours as needed 4. Chronic pain, present on admission, active -patient with fibromyalgia and Chiari malformation with associated headache and neck pain -chronic pain treated with methadone 60 mg 3 methadone clinic for 3 weeks -teaching provided regarding use of other opiate medications both prescribed and recreational including harmful effects and risk of -will continue methadone at current dose is 60 mg Patient is admitted to inpatient ICU due to severity of illness and high risk for cardiovascular instability and close monitoring. The anticipated length of stay is greater than 2 midnights. Critial Care time: 35 minutes Time Spent With Patient Time with patient: 15-24 minutes Scores GCS Maru coma scale eye opening: Spontaneous Maru coma scale verbal response: Orientated Maru coma scale motor response: Obey commands [place] coma scale total score: 15
[2018-08-18] MEDS: KETOROLAC 15 MG/ML VIAL IV (22:52)
--- NOTE | 2018-08-18 23:50 | PC.NURSE ---
Refused to allow physical assessment.
[2018-08-19] VITALS (14 sets, daily range): BP systolic 90–122; BP diastolic 43–69; PULSE 40–66; RESP 12–20; TEMP 36.2–36.8; O2SAT 92–98
--- NOTE | 2018-08-19 00:31 | PC.NURSE ---
Allowed assessment, asked for snack of 1/2 sandwich and juice. Apologized for earlier behavior.
[2018-08-19] MEDS: SODIUM CHLORIDE 0.9% 1,000 ML 100 ML IV ×2 (02:11→14:35)
[2018-08-19] MEDS: CEFEPIME 1 GM in SODIUM CHLORIDE 0.9% 100 ML 200 ML IV (02:34)
[2018-08-19 05:13] LABS: Hematocrit 39.4 % (36-46); Hemoglobin 12.3 g/dL (12.0-16.0); Mean Corpuscular HGB Conc 31.3 % (30-36); Mean Corpuscular Hemoglobin 26.3 PG (26-34); Mean Corpuscular Volume 83.9 fL (80-100); Platelet Count 255 X10^3/uL (150-400)
[2018-08-19 05:17] LABS: BUN Creatinine Ratio 17.1 (6-22); Blood Urea Nitrogen 12 mg/dL (7-17); Carbon Dioxide 22 mmol/L (22-32); Chloride 110 mmol/L (98-107); Estimated Glomerular Filt Rate > 60.0 mL/min (>60); Glucose 142 mg/dL (80-110); HEMOLYSIS < 15 (0-50); Potassium 4.7 mmol/L (3.4-5.1); Sodium 138 mmol/L (137-145)
[2018-08-19 05:36] LABS: Add Manual Diff / Slide Review YES; White Blood Cell Count 25.7 X10^3/uL (4.5-11.0)
[2018-08-19 05:37] LABS: Neutrophils Absolute Manual 23901 /uL (3000-5900); Procalcitonin 6.31 ng/mL (<0.5); RBC Morphology Normal Morphology; Total Cells Counted 100
[2018-08-19] MEDS: KETOROLAC 15 MG/ML VIAL IV ×3 (06:21→21:01)
[2018-08-19] MEDS: HEPARIN 5,000 UNIT/ML VIAL 5000 UNIT SUBCUT ×2 (06:21→21:01)
[2018-08-19] MEDS: ALBUTEROL/IPRATROPIUM 3 ML AMPUL INH (06:22)
--- NOTE | 2018-08-19 07:45 | PM.PN.1 ---
Subjective Date Patient Seen: 08/19/18 Interval history: Laurie Pedraza is a 58-year-old female with a past medical history significant for COPD, heroin abuse and chronic pain now on methadone who presented from methadone clinic due to methadone and Percocet accidental overdose leading to episode of unresponsiveness which resolved with intranasal Narcan and upon arrival she was found to have bilateral community-acquired pneumonia. Overnight: Telemetry sinus bradycardia, heart rate 30s to 40s, no ectopy. The patient is resting in bed comfortably and in no acute distress. She reports she is feeling better. She denies lightheadedness or dizziness, headache, ear pain, rhinitis, sore throat, shortness of breath, chest pain, abdominal pain, nausea, vomiting, fever, chills, dysuria, diarrhea or constipation. Discussed methadone use and likely secondary significant bradycardia and possibility for sudden or arrhythmia. The patient is adamant that she does not want any Narcan even at low doses. Reiterated that this will not make her ill. She is voiding and eliminating without difficulty. She ambulates independently and encouraged her to get up out of bed and ambulate in the room and in the halls. Exam Vital Signs (past 8 hours): - 08/18/18 23:52 08/19/18 00:05 08/19/18 04:00 Temperature 97.5 F L 97.2 F L Pulse Rate 66 40 L Respiratory Rate 16 13 Blood Pressure 112/61 103/43 L Pulse Oximetry 97 98 08/19/18 06:23 08/19/18 07:41 Temperature 98 F Pulse Rate 47 L 53 L Respiratory Rate 20 16 Blood Pressure 105/69 Pulse Oximetry 97 95 Oxygen Delivery Method Room Air Oxygen Flow Rate 2 Narrative Exam Narrative: General: Middle-aged female lying in bed and in no acute distress, appears older than stated age and chronically ill, well-developed, well-nourished, appropriately interactive. HEENT: Normocephalic, atraumatic. External ears without defect. Pupils equal, round, and reactive to light. Anicteric sclerae, moist conjunctivae, and no lid lag. Neck: Supple with full range of motion. No lymphadenopathy or thyromegaly. Cardiovascular: Regular rhythm, bradycardic, without murmurs, rubs, or gallops appreciated. Pulmonary: Scattered rhonchi throughout all lung tierney. No wheeze or crackles. Normal respiratory effort with no use of accessory muscles. Abdomen: Soft, bowel sounds present, nontender, nondistended. No hepatosplenomegaly or masses appreciated. Extremities: No clubbing, cyanosis, or edema. Skin: Normal temperature, turgor, and texture; no rash, ulcers, or subcutaneous nodules appreciated. Neurological: Cranial nerves grossly intact. Psychiatric: Depressed mood and flat affect. Denies suicidal ideation. Alert and oriented to person, place, and time. Objective Labs Result Diagrams: 08/19/18 04:37 08/19/18 04:37 Labs: Laboratory Results - last 24 hr 08/18/18 08/18/18 08/18/18 11:20 11:20 11:20 WBC 15.7 H RBC 5.22 H Hgb 13.6 Hct 42.4 MCV 81.2 MCH 26.1 MCHC 32.1 RDW 15.5 H Plt Count 324 Neut % (Auto) 93.9 H Lymph % (Auto) 3.3 L [place] % (Auto) 3.1 Eos % (Auto) 0.0 L Baso % (Auto) 0.3 Neut # (Auto) 58776 H Lymph # (Auto) 500 L [place] # (Auto) 500 Eos # (Auto) 0 Baso # (Auto) 0 Total Counted Seg Neutrophils % Lymphocytes % (Manual) Monocytes % (Manual) Neutrophils # (Manual) RBC Morphology Sodium Potassium Chloride Carbon Dioxide BUN Creatinine Estimated GFR BUN/Creatinine Ratio Glucose Lactate Calcium Total Bilirubin AST ALT Alkaline Phosphatase Total Protein Albumin Globulin Albumin/Globulin Ratio Lipase Cancelled Procalcitonin Nasal Screen MRSA (PCR) Salicylates Cancelled Urine Opiates Screen Ur Oxycodone Screen Urine Methadone Screen Acetaminophen Ur Barbiturates Screen U Tricyclic Antidepress Ur Phencyclidine Scrn Ur Amphetamines Screen U Methamphetamines Scrn Ur MDMA Scrn (Ecstasy) U Benzodiazepines Scrn Urine Cocaine Screen U Marijuana (THC) Screen Ethyl Alcohol Influenza A & B (PCR) Negative 08/18/18 08/18/18 08/18/18 11:20 11:20 11:20 WBC RBC Hgb Hct MCV MCH MCHC RDW Plt Count Neut % (Auto) Lymph % (Auto) [place] % (Auto) Eos % (Auto) Baso % (Auto) Neut # (Auto) Lymph # (Auto) [place] # (Auto) Eos # (Auto) Baso # (Auto) Total Counted Seg Neutrophils % Lymphocytes % (Manual) Monocytes % (Manual) Neutrophils # (Manual) RBC Morphology Sodium 138 Potassium 3.8 Chloride 104 Carbon Dioxide 24 BUN 8 Creatinine 0.70 Estimated GFR > 60.0 BUN/Creatinine Ratio 11.4 Glucose 93 Lactate 1.5 Calcium 8.5 Total Bilirubin 0.6 AST 35 ALT 23 Alkaline Phosphatase 112 Total Protein 7.4 Albumin 4.2 Globulin 3.2 Albumin/Globulin Ratio 1.3 Lipase 183 Procalcitonin 3.20 H Nasal Screen MRSA (PCR) Salicylates 5.9 Urine Opiates Screen Ur Oxycodone Screen Urine Methadone Screen Acetaminophen < 10 L Ur Barbiturates Screen U Tricyclic Antidepress Ur Phencyclidine Scrn Ur Amphetamines Screen U Methamphetamines Scrn Ur MDMA Scrn (Ecstasy) U Benzodiazepines Scrn Urine Cocaine Screen U Marijuana (THC) Screen Ethyl Alcohol < 10 Influenza A & B (PCR) 08/18/18 08/18/18 08/19/18 16:00 18:00 04:37 WBC 25.7 H D RBC 4.70 Hgb 12.3 Hct 39.4 MCV 83.9 MCH 26.3 MCHC 31.3 RDW 16.0 H Plt Count 255 Neut % (Auto) Not Reportable Lymph % (Auto) Not Reportable [place] % (Auto) Not Reportable Eos % (Auto) Not Reportable Baso % (Auto) Not Reportable Neut # (Auto) Lymph # (Auto) Not Reportable [place] # (Auto) Not Reportable Eos # (Auto) Baso # (Auto) Not Reportable Total Counted 100 Seg Neutrophils % 93.0 H Lymphocytes % (Manual) 5.0 L Monocytes % (Manual) 2.0 Neutrophils # (Manual) 63692 H RBC Morphology Normal morphology Sodium Potassium Chloride Carbon Dioxide BUN Creatinine Estimated GFR BUN/Creatinine Ratio Glucose Lactate Calcium Total Bilirubin AST ALT Alkaline Phosphatase Total Protein Albumin Globulin Albumin/Globulin Ratio Lipase Procalcitonin Nasal Screen MRSA (PCR) Negative for mrsa Salicylates Urine Opiates Screen Negative Ur Oxycodone Screen Positive H Urine Methadone Screen Positive H Acetaminophen Ur Barbiturates Screen Negative U Tricyclic Antidepress Negative Ur Phencyclidine Scrn Negative Ur Amphetamines Screen Negative U Methamphetamines Scrn Negative Ur MDMA Scrn (Ecstasy) Negative U Benzodiazepines Scrn Negative Urine Cocaine Screen Negative U Marijuana (THC) Screen Negative Ethyl Alcohol Influenza A & B (PCR) 08/19/18 08/19/18 04:37 04:37 WBC RBC Hgb Hct MCV MCH MCHC RDW Plt Count Neut % (Auto) Lymph % (Auto) [place] % (Auto) Eos % (Auto) Baso % (Auto) Neut # (Auto) Lymph # (Auto) [place] # (Auto) Eos # (Auto) Baso # (Auto) Total Counted Seg Neutrophils % Lymphocytes % (Manual) Monocytes % (Manual) Neutrophils # (Manual) RBC Morphology Sodium 138 Potassium 4.7 Chloride 110 H Carbon Dioxide 22 BUN 12 Creatinine 0.70 Estimated GFR > 60.0 BUN/Creatinine Ratio 17.1 Glucose 142 H Lactate Calcium 8.0 L Total Bilirubin AST ALT Alkaline Phosphatase Total Protein Albumin Globulin Albumin/Globulin Ratio Lipase Procalcitonin 6.31 H Nasal Screen MRSA (PCR) Salicylates Urine Opiates Screen Ur Oxycodone Screen Urine Methadone Screen Acetaminophen Ur Barbiturates Screen U Tricyclic Antidepress Ur Phencyclidine Scrn Ur Amphetamines Screen U Methamphetamines Scrn Ur MDMA Scrn (Ecstasy) U Benzodiazepines Scrn Urine Cocaine Screen U Marijuana (THC) Screen Ethyl Alcohol Influenza A & B (PCR) Assessment & Plan Plan: Assessment/Plan Narrative: Laurie Pedraza is a 58-year-old female with a past medical history significant for COPD, heroin abuse and chronic pain now on methadone who presented from methadone clinic due to methadone and Percocet accidental overdose leading to episode of unresponsiveness which resolved with intranasal Narcan and upon arrival she was found to have bilateral community-acquired pneumonia. 1. Acute accidental opiate overdose, present on admission. Active. -Patient was found to be briefly unresponsive at methadone clinic reversed with Narcan. -Patient endorses taking Percocet in addition to methadone. Remote history of IV drug abuse. Last use of heroin was intranasal 1 month ago. Toxicology screening is positive for oxycodone and methadone. -Patient is hypotension and bradycardic (HR as low as high 30's) secondary to methadone as opposed to sepsis as the patient is afebrile. -Continue close cardiac monitoring, anticipated blood pressure and heart rate normalizing as medication wears off. Ordered Narcan 0.2 mg every 30 min for heart rate less than 35. -Holding all sedative medications. If patient begins to have moderate to severe pain may consider starting oxycodone 10 mg every 8 hr. Do not believe she is a candidate for methadone. 2. Acute community-acquired pneumonia, present on admission. Active. -Patient presented with productive cough for 3 weeks, shortness of breath, and rhinitis. -Chest x-ray interpreted by me demonstrated bilateral lower lobe infiltrate consistent with pneumonia initial. -Ordered complete pneumonia workup including: Respiratory viral PCR, Streptococcus pneumoniae and Legionella urine antigens, sputum culture, and blood culture x2, pending. -Initial procalcitonin at 3.2. Increased to 6.31 today and will likely plateau. Continue to trend daily. -Continue cefepime 2 g every 12 hr. Received cefepime 1 g every and vancomycin in the ED. Discontinue vancomycin as MRSA screen was negative. 3. COPD, present on admission. Stable. -Does not represent COPD exacerbation. Patient does not have increased oxygen requirement or wheezing on exam. -Patient has a 51 pack year history. -Patient did receive methylprednisolone 125 mg IV x1 in the ED. Increased leukocytosis reflective of steroid use. -Continue DuoNeb every 6 hours as needed. 4. Chronic pain, present on admission. Active. -Patient with fibromyalgia with all over body pain and Chiari malformation repaired x 4 with associated headache and neck pain. -Chronic pain treated with methadone 60 mg at methadone clinic for the last 3 weeks. -Teaching provided regarding use of other opiate medications both prescribed and recreational including harmful effects and risk of . -Discontinued methadone due to extreme bradycardia. EKG demonstrated QTc 425 ms. Disposition: Patient likely to discharge home in 1-2 days depending upon treatment of pneumonia and improvement in bradycardia from methadone.
[2018-08-19] MEDS: ACETAMINOPHEN 325 MG TABLET 650 MG PO ×3 (09:26→19:55)
--- NOTE | 2018-08-19 10:34 | CM.DANOTE ---
Patient is a 58 year old female who was admitted on 08/18/18 for Overdose. Pt has [facility] and [facility] for insurance and her PCP is in [place]. EMR was reviewed. Per MD, pt with accidental overdose at Methadone Clinic and still not medically stable for d/c home today and pt continues to deny suicidal ideation or attempt. SW met bedside with pt and explained role and pt confirms that she lives in [place] on [address] and is Independent with ADL's at baseline. Pt's spouse recently in February 2018 and pt has local adult children who have a hx of drug abuse. Pt confirms that she has a hx of ETOH abuse but has been sober from alcohol use for years but has a more recent hx of IV drug abuse with last use about a month ago. Pt currently established with the [facility] where she received her methadone dose and had accidental overdose with brief unresponsiveness. Pt continues to deny any suicidal ideation or plan and is agreeable with mental health counseling support for grief and hx of drug abuse. SW discussed mental health support and pt states that she feels comfortable contacting the [facility] to set up counseling support and SW also discussed CPIT (Crisis Prevention Intervention Team) and that they can also meet with her at home or in the community to help establish her with a counselor through her insurance if needed and also meet with her for crisis planning if needed. Pt was hesitant to use any other agency outside of [facility] but was agreeable with taking the resources offered for possible future need. Pt was emotional and stated that she would just like to be home resting. Pt confirms that she used the scheduled shuttle transport to the Methadone Clinic and was transferred to [facility] via ambulance but is pretty sure that family or friend can provide transport at d/c home. Plan: SW to continue to follow for likely pt d/c home when medically stable and possible need to inquire about Medicaid Transport benefit if pt cannot find someone to provide transportation home. Pt denying suicidal ideation/plan and provided with Mental Health resources. SAMMI Nascimento Discharge Planning/Care Management CM Discharge Assessment Start: 08/19/18 10:32 Freq: Status: Active Protocol: Document 08/19/18 10:32 BF (Rec: 08/19/18 10:34 BF [id number]) Discharge Planning Assessment Assigned Continuous Miner SAMMI Hsu DPOA/Assigned Designee Name none Advance Directives? No Advance Directives on File No History Provided By Patient Medical Record Has Patient been admitted in last 30 No days? Prior Living Arrangements House Household Members children Type of transporation used prior to Drives own vehicle admit Independent with ADL's Yes Is patient alert and oriented? Yes Caregiver for Another No Comment Likely home Barriers to Discharge No Discharge Plan Home Transportation Arrangement Likely family can provide transport Additional Comment Provided MH resources for counseling/crisis support Whiteboard Updated in Patient Room with Yes name and ext. # of Continuous Miner Review Status In Process Please Provide Date Initial DC 08/19/18 Assessment Was Performed Next Review Type Continued Stay Review
[2018-08-19 10:44] LABS: Adenovirus Not Detected (Not Detect); Bordetella pertussis Not Detected (Not Detect); Chlamydophila pneumoniae Not Detected (Not Detect); Coronavirus 229E Not Detected (Not Detect); Coronavirus HKU1 Not Detected (Not Detect); Coronavirus NL 63 Not Detected (Not Detect); Coronavirus OC43 Not Detected (Not Detect); Human Metapneumovirus Not Detected (Not Detect); Human Rhinovirus/Enterovirus Not Detected (Not Detect); Influenza A Not Detected (Not Detect); Influenza B Not Detected (Not Detect); Mycoplasma pneumoniae Not Detected (Not Detect); Parainfluenza Virus 1 Not Detected (Not Detect); Parainfluenza Virus 2 Not Detected (Not Detect); Parainfluenza Virus 3 Not Detected (Not Detect); Parainfluenza Virus 4 Not Detected (Not Detect); Respiratory Syncytial Virus Not Detected (Not Detect)
[2018-08-19] MEDS: CEFEPIME 2 GM in SODIUM CHLORIDE 0.9% 100 ML 200 ML IV (12:40)
--- NOTE | 2018-08-19 14:23 | PC.NURSE ---
Addendum entered by Farrukh Escobar R.N. 08/19/18 14:49: Message relayed to Dr. Morel via telephone at 1430. Original Note: AO x3 and making needs known with clear, logical speech. SB on bedside monitor rates as low as 37 while asleep. While awake, HR varies from 40s-60s. Pt ambulated independently with steady gait around nurse station about 6 times. HR noted to be in the 70s. I feel fine. Denies dizziness, lightheadedness at rest and/or with activity.. Reports anxiety r/t not having methadone. Requesting Dr. Morel call the clinic to inquire about her methadone dosing. Educated to plan of care and reasoning for holding methadone. She verbalizes understanding but would still like Dr. Morel to contact the clinic and speak with the provider.
[2018-08-20] MEDS: CEFEPIME 2 GM in SODIUM CHLORIDE 0.9% 100 ML 200 ML IV (00:07)
[2018-08-20 00:12] VITALS: O2SAT 96
[2018-08-20 04:55] VITALS: BP 128/64; PULSE 39; RESP 16; TEMP 36.4; O2SAT 94
[2018-08-20 05:50] LABS: Add Manual Diff / Slide Review NO; Basophils Absolute Auto 100 /uL (0-100); Basophils Percent Auto 0.5 % (0-2); Eosinophils Absolute Auto 0 /uL (0-450); Eosinophils Percent Auto 0.3 % (2-4); Hematocrit 34.5 % (36-46); Hemoglobin 11.1 g/dL (12.0-16.0); Lymphocytes Absolute Auto 2900 /uL (1100-4500); Lymphocytes Percent Auto 24.4 % (25-40); Mean Corpuscular HGB Conc 32.1 % (30-36); Mean Corpuscular Hemoglobin 26.2 PG (26-34); Mean Corpuscular Volume 81.5 fL (80-100); Monocytes Absolute Auto 600 /uL (0-900); Monocytes Percent Auto 4.7 % (3-14); Neutrophils Absolute Auto 8300 /uL (1500-7000); Neutrophils Percent Auto 70.1 % (50-75); Platelet Count 254 X10^3/uL (150-400); Red Blood Cell Count 4.23 X10^6/uL (4.0-5.2); Red Cell Distribution Width 16.3 % (11.6-14.8); White Blood Cell Count 11.9 X10^3/uL (4.5-11.0)
[2018-08-20 05:59] LABS: BUN Creatinine Ratio 21.1 (6-22); Blood Urea Nitrogen 19 mg/dL (7-17); Calcium 8.3 mg/dL (8.4-10.2); Carbon Dioxide 24 mmol/L (22-32); Chloride 112 mmol/L (98-107); Estimated Glomerular Filt Rate > 60.0 mL/min (>60); Glucose 81 mg/dL (80-110); HEMOLYSIS < 15 (0-50); Potassium 4.5 mmol/L (3.4-5.1); Sodium 139 mmol/L (137-145)
[2018-08-20] MEDS: HEPARIN 5,000 UNIT/ML VIAL 5000 UNIT SUBCUT (06:08)
[2018-08-20] MEDS: KETOROLAC 15 MG/ML VIAL IV (06:09)
[2018-08-20] MEDS: ACETAMINOPHEN 325 MG TABLET 650 MG PO (06:17)
[2018-08-20 08:00] VITALS: BP 146/81; PULSE 51; RESP 16; TEMP 36.6; O2SAT 96
--- NOTE | 2018-08-20 09:04 | PM.DS.1 ---
History of Present Illness Date Patient Seen: 08/20/18 Chief complaint: overdose Narrative: This is a 58-year-old female patient with a history of COPD, fibromyalgia, Oneal malformation, status post colon resection and history of IV drug use who was brought to the ER with an accidental overdose. Early in the day the patient was seen at methadone Clinic where she received 60 mg of methadone. Subsequently the patient had a syncopal episode and became unresponsive while at the clinic and received 2 doses of intranasal 2 min apart with the patient regaining responsiveness. On further investigation it was found that the patient who had been feeling poorly for 3 weeks with a productive cough fever nausea without and 2 days of diarrhea and took 1/2 of a 10 mg Percocet in attempt to feel better. She has had recent sick contact with her grandson having the flu. She has additional history current smoker 1 pack per day and heroin use with last exposure reported 1 month ago. She has associated complaints vomiting, rhinorrhea and headache. Level in ER patient had a GCS documented at 14 with eyes opening to sound. She is alert and oriented to name and place. Initial rhythm was sinus rhythm which progressed to sinus bradycardia. On examination she had a cough with coarse breath sounds and exertional dyspnea. A chest x-ray reveals bilateral pneumonia. On CBC she is noted to have an elevated white count left shift if 15.7 with an H/H of 13.6 and 42.4 respectively. Her chemistries are noted to be within normal range with a BUN of 8 creatinine is 0.7. She has lactate of 1.5 and a procalcitonin of 3.20. Initial vital signs in the ER 147/76, respiratory rate is 16, heart rate of O2 saturation of 100% air with an end-tidal CO2 of 36. Of note in the ER patient was documented with temperature of 103.2? and 5 min later a 98.9 and has been afebrile since. On encounter the patient complains of headache, neck pain and nausea is appropriately responsive and cooperative. She denies sore throat or chest pain and has no dyspnea at rest. Discharge Providers Date of admission: 08/18/18 14:41 Consults: 08/18/18 23:50 Consult to Respiratory Therapy Evaluate & Treat Comment: COPD, current smoker, community-acquired pneumonia Physician Instructions: Evaluate and treat Discharge provider: hCasidy Thakur MD Discharge Date: 08/20/18 Summary Hospital Course: 1. Acute accidental opiate overdose, present on admission. Active. -Patient was found to be briefly unresponsive at methadone clinic reversed with Narcan. -Patient admitted to taking Percocet in addition to methadone. Remote history of IV drug abuse. Last use of heroin was intranasal 1 month ago. Toxicology screening is positive for oxycodone and methadone. -Patient was hypotensiv and bradycardic (HR as low as high 30's) secondary to methadone as opposed to sepsis as the patient is afebrile. No QT prolongation on EKG. -I spoke with her methadone Clinic nurse practitioner. We discussed the EKG findings, the persisting bradycardia, the admitted use of Percocet in addition to methadone, her desire for methadone before discharge etc. Their direction was to not give methadone, to have her come to the clinic on Thursday morning. This was explained to the patient. She as expected was quite disturbed by that change and attempted to persuade me to discharge her with different plans which I did not agree to. 2. Acute community-acquired pneumonia, present on admission. Active. -Patient presented with productive cough for 3 weeks, shortness of breath, and rhinitis. -Chest x-ray demonstrated bilateral lower lobe infiltrate consistent with pneumonia. -Ordered complete pneumonia workup including: Respiratory viral PCR, Streptococcus pneumoniae and Legionella urine antigens, sputum culture, and blood culture x2, pending. -Initial procalcitonin at 3.2. This remained high at 5.5 today but without any symptoms of sepsis, severe infection or respiratory infection at this time. Consider endocarditis workup. -treat with cefuroxime 500 mg b.i.d. for 7 more days. 3. COPD, present on admission. Stable. -Does not represent COPD exacerbation. Patient does not have increased oxygen requirement or wheezing on exam. -Patient has a 51 pack year history. -Patient did receive methylprednisolone 125 mg IV x1 in the ED. Increased leukocytosis reflective of steroid use. 4. Chronic pain, present on admission. Active. -Patient with fibromyalgia with all over body pain and Chiari malformation repaired x 4 with associated headache and neck pain. -Chronic pain/Opiate Use Disorder treated with methadone 60 mg at methadone clinic for the last 3 weeks. -Teaching provided regarding use of other opiate medications both prescribed and recreational including harmful effects and risk of . -Discontinued methadone due to extreme bradycardia. EKG demonstrated QTc 425 ms. Total time today is 35 min. Exam Vital Signs (past 8 hours): - 08/20/18 04:55 08/20/18 08:00 Temperature 97.6 F 97.8 F Pulse Rate 39 L 51 L Respiratory Rate 16 16 Blood Pressure 128/64 146/81 H Pulse Oximetry 94 96 Oxygen Delivery Method Room Air Oxygen Flow Rate 0 Narrative Exam Narrative: She is alert and oriented x3. She is asking for a dose of methadone. She says her physician is Dr. Perez at [facility] in [place]. Heart is regular rate and rhythm without murmur. Lungs are clear to auscultation bilaterally. Extremities are no ankle edema. Her heart rate varies from high 30s while asleep up into the 70s while moving around. Objective Labs Result Diagrams: 08/20/18 04:48 08/20/18 04:48 Labs: Laboratory Results - last 24 hr 08/19/18 08/20/18 08/20/18 08:55 04:48 04:48 WBC 11.9 H D RBC 4.23 Hgb 11.1 L Hct 34.5 L MCV 81.5 MCH 26.2 MCHC 32.1 RDW 16.3 H Plt Count 254 Neut % (Auto) 70.1 D Lymph % (Auto) 24.4 L D [place] % (Auto) 4.7 Eos % (Auto) 0.3 L Baso % (Auto) 0.5 Neut # (Auto) 8300 H Lymph # (Auto) 2900 [place] # (Auto) 600 Eos # (Auto) 0 Baso # (Auto) 100 Sodium Potassium Chloride Carbon Dioxide BUN Creatinine Estimated GFR BUN/Creatinine Ratio Glucose Calcium Procalcitonin 5.50 H Chlamy pneumoniae PCR Not detected Adenovirus (PCR) Not detected B.parapertussis DNA PCR Not detected Coronavirus OC43 (PCR) Not detected Coronavirus HKU1 (PCR) Not detected Coronavirus 229E (PCR) Not detected Coronavirus NL63 (PCR) Not detected Human Metapneumovir PCR Not detected Influenza Type A (PCR) Not detected Influenza Type B (PCR) Not detected M. pneumoniae (PCR) Not detected Parainfluenza 1 (PCR) Not detected Parainfluenza 2 (PCR) Not detected Parainfluenza 3 (PCR) Not detected Parainfluenza 4 (PCR) Not detected RSV (PCR) Not detected Entero/Rhino (PCR) Not detected 08/20/18 04:48 WBC RBC Hgb Hct MCV MCH MCHC RDW Plt Count Neut % (Auto) Lymph % (Auto) [place] % (Auto) Eos % (Auto) Baso % (Auto) Neut # (Auto) Lymph # (Auto) [place] # (Auto) Eos # (Auto) Baso # (Auto) Sodium 139 Potassium 4.5 Chloride 112 H Carbon Dioxide 24 BUN 19 H Creatinine 0.90 Estimated GFR > 60.0 BUN/Creatinine Ratio 21.1 Glucose 81 Calcium 8.3 L Procalcitonin Chlamy pneumoniae PCR Adenovirus (PCR) B.parapertussis DNA PCR Coronavirus OC43 (PCR) Coronavirus HKU1 (PCR) Coronavirus 229E (PCR) Coronavirus NL63 (PCR) Human Metapneumovir PCR Influenza Type A (PCR) Influenza Type B (PCR) M. pneumoniae (PCR) Parainfluenza 1 (PCR) Parainfluenza 2 (PCR) Parainfluenza 3 (PCR) Parainfluenza 4 (PCR) RSV (PCR) Entero/Rhino (PCR) Discharge Plan Discharge Plan Patient Disposition: Home Discharge Med Rec/Prescriptions Prescriptions: New cefuroxime axetil 500 mg tablet 500 mg PO Q12H 7 Days Qty: 14 RF: 0 Continue albuterol sulfate 90 mcg/actuation HFA aerosol inhaler 2 puff Inhalation Q4-6H PRN (Reason: cough or wheeze) RF: 0 hydroxyzine HCl 10 mg tablet 10 mg PO BEDTIME PRN (Reason: Insomnia) RF: 0 fluticasone 50 mcg/actuation spray,suspension 1 spray Intranasal DAILY RF: 0 gabapentin 800 mg Tablet 800 mg PO QID RF: 0 Discontinued methadone 10 mg Tablet 60 mg PO DAILY RF: 0 Follow up/Referrals: Onur Perez MD [Non-Staff] - 08/27/18 12:00 am (Also follow up with the [facility] on ThursdayAugust 23. ) Visit Report/Discharge Packet Instructions: DI for Pneumonia -- Adult, Cefuroxime Visit Report Forms: Stroke Signs & Symptoms Discharge Data Attending Provider: Marion Morel Admit Date/Time: 08/18/18 14:41 Discharges patient from system. Discharge Date/Time: 08/20/18 09:15
--- NOTE | 2018-08-20 09:25 | PC.NURSE ---
Pt d/c'd to home per MD orders. States she will make own f/u appts for post-hospitalization care. States she will call and pay for own cab. PIV IV removed with cath tip intact. Telemetry removed. Provided rx and educated to use, side effects, dose instructions. Educated to PNA, importance of f/u, substance abuse options, smoking cessation. Pt verbalizes understanding and states no questions at this time. Pt ambulated to ER entrance escorted by EMERGENCY DEPARTMENT TECHNICIAN in no apparent distress with a steady gait and all belongings. Requests to wait for her ride independently.
[2018-08-20 13:13] LABS: Anti-Streptolysin O Antibody < 50 IU/mL (< 200)
== END 2018-08-20 09:15 | disposition home or self-care (01) | DRG 917 ==
LOC: ED 14:41 → ICU 15:17
PROVIDERS: Nurse Practitioner Adult Health; Admitting Provider Internal Medicine; Emergency Provider Emergency Medicine; Visit Provider Internal Medicine
DX: T40.2X1A Poisoning by other opioids, accidental (unintentional), initial encounter (principal); J18.9 Pneumonia, unspecified organism; T40.3X1A Poisoning by methadone, accidental (unintentional), initial encounter; J44.9 Chronic obstructive pulmonary disease, unspecified; G89.29 Other chronic pain; Q07.00 Arnold-Chiari syndrome without spina bifida or hydrocephalus; R00.1 Bradycardia, unspecified; M79.7 Fibromyalgia; F17.210 Nicotine dependence, cigarettes, uncomplicated; F32.9 Major depressive disorder, single episode, unspecified; I95.9 Hypotension, unspecified
CPT/HCPCS: 36415; 36591; 71045; 80048; 80053; 80305; 80320; 80329; 82962; 83605; 83690; 84145; 85025; 86060; 87040; 87070; 87077; 87205; 87400; 87449; 87633; 87797; 93005; 94640; 94770; 96361; 96374; 96375; 96376; 99284; 99285; 99406; G0480; J0692; J1644; J1885; J2405; J2930; J3370